=== PATIENT | female | born 1985 | race Caucasian/White ===

== ENCOUNTER → 2024-12-24 | Outpatient (CLI) | payer SELFPAY, OTHER ==
--- NOTE | 2024-12-24 12:54 | ECHOD_ITS ---
Reason For Study Reason For Study: Dyspnea/SOB Procedure This was a 2D Doppler, Color Flow transthoracic echocardiogram. Exam performed in department. Left Ventricle Normal size and thickness. The left ventricular ejection fraction is 65 %. No evidence for diastolic dysfunction. Right Ventricle Normal right ventricle. Atria The left and right atria are normal. Interatrial septum bows to the right. Mitral Valve Trivial mitral valve insufficiency. Tricuspid Valve Trivial tricuspid valve insufficiency. Normal pulmonary artery pressure. Aortic Valve Trisinus/trileaflet aortic valve. Pulmonic Valve The pulmonic valve is not well visualized. Great Vessels Normal sized aortic root. Pericardium/Pleural No pericardial effusion. MMode/2D Measurements & Calculations LVIDd: 4.5 cm IVSd: 0.64 cm Ao root diam: 3.4 cm LVIDs: 2.8 cm LVPWd: 0.68 cm RVDd: 3.9 cm FS: 37.3 % LAV(MOD-bp): 32.3 ml LVAd ap4: 24.9 cm2 SV(MOD-sp4): 49.5 ml LAV(MOD-bp) Indexed: 19.0 ml/m2 LVLd ap4: 6.9 cm SI(MOD-sp4): 29.2 ml/m2 LAV(MOD-sp2): 24.1 ml EDV(MOD-sp4): 75.9 ml LAV(MOD-sp4): 39.7 ml EDV(sp4-el): 76.3 ml LVAs ap4: 12.9 cm2 LVLs ap4: 5.4 cm ESV(MOD-sp4): 26.4 ml ESV(sp4-el): 25.9 ml EF(MOD-sp4): 65.2 % EF(sp4-el): 66.1 % SV(sp4-el): 50.4 ml LA A4 area: 15.5 cm2 LA dimension(2D): 2.8 cm RA A4 area: 15.2 cm2 TAPSE: 2.9 cm Time Measurements MV dec time: 0.19 sec Doppler Measurements & Calculations MV E max rodo: 87.7 cm/sec Lat Peak E' Rodo: 17.9 cm/sec Med Peak E' Rodo: 24.7 cm/sec MV A max rodo: 60.6 cm/sec E/E' lat: 4.9 E/E' med: 3.5 MV E/A: 1.4 MV V2 max: 105.7 cm/sec MV P1/2t max rodo: 106.4 cm/sec Ao V2 max: 105.1 cm/sec MV max P.5 mmHg MV P1/2t: 75.9 msec Ao max P.4 mmHg MV V2 mean: 54.9 cm/sec MV mean P.4 mmHg MV dec slope: 410.8 cm/sec2 MV V2 VTI: 27.3 cm MVA(P1/2t): 2.9 cm2 LV V1 max: 107.2 cm/sec PA V2 max: 96.9 cm/sec TR max rodo: 234.8 cm/sec LV V1 max P.6 mmHg TR max P.1 mmHg ECHO/Echo Complete Interpretation Summary The left ventricular ejection fraction is 65 %. No evidence for diastolic dysfunction. Ordering Physician: Aniyah Patel Referring Physician: Aniyah Patel Performed By: Adam Johnson RCS
--- NOTE | 2024-12-24 12:54 | STEWCON_ITS ---
Reason For Study : Dyspnea Stress Results Protocol: Stress Echocardiogram Jermaine Protocol Maximum Predicted HR: 179 bpm Target HR: 152 bpm % Maximum Predicted HR: 97 % DurationHeart Rate Stage (mm:ss) (bpm) BP Comment Baseline 75 120/80Patient denies chest pain Stage 1 3:00 141 144/90Patient denies chest pain Stage 2 3:00 160 156/82Patient complains of shortness of breath. Denies chest pain. Stage 3 0:40 173 / Increased shortness of breath, and fatigue. Denies chest pain. Recovery 88 122/80Patient denies chest pain or shortness of breath. 2ml Definity total used per protocol. Stress Duration: 6:40 mm:ss Maximum Stress HR: 173 bpm Baseline Echocardiogram Findings Resting LVEF 60%. Stress Echo Wall motion Data Resting WM Intermediate WM Stress WM Resting Wall Motion Wall Motion Stress No regional wall motion abnormalities All segments hyperkinetic postexercise. noted. No echo evidence of ischemia. EKG Data The baseline ECG displays normal sinus rhythm. Negative stress ECG for ischemia. Occasional PVCs. ECHO/Stress Test Echo W/Contrast Interpretation Summary Resting LVEF 60%. Negative stress ECG for ischemia. Occasional PVCs. All segments hyperkinetic postexercise. No echo evidence of ischemia. Ordering Physician: Aniyah Patel Referring Physician: Aniyah Patel MD Performed By: Adam Johnson RCS
== END | disposition home or self-care (01) ==
LOC: CVS 12:44
PROVIDERS: PCP Family Medicine; Referring Provider Internal Medicine Cardiovascular Disease; Visit Provider Internal Medicine Cardiovascular Disease
DX: R06.09 Other forms of dyspnea (principal)
CPT/HCPCS: 93017; 93306; 93350; Q9957; A4216; C8928